=== PATIENT | male | born 1995 | race African-American/Black ===

== ENCOUNTER 2018-05-12 13:35 | Emergency (ER) | payer OTHER ==
[2018-05-12] MEDS ORDERED: Lidocaine 1% (PF) 30 ML VIAL ONE (13:55)
[2018-05-12] MEDS ORDERED: Azithromycin 250 MG TAB ONE (13:55)
[2018-05-12] MEDS ORDERED: cefTRIAXone\\ROCEPHIN 250 MG VIAL ONE (13:55)
[2018-05-15 00:56] LABS: Chlamydia by PCR Not Detected (NotDetected); GC by PCR DETECTED (NotDetected)
== END 2018-05-12 14:43 | disposition home or self-care (01) ==
LOC: ERS 13:35
DX: Z20.2 Contact with and (suspected) exposure to infections with a predominantly sexual mode of transmission (principal)
CPT/HCPCS: 87491; 87591; 96372; J0696; J2001

== ENCOUNTER 2018-09-01 19:36 | Emergency (ER) | payer OTHER ==
[2018-09-01] MEDS ORDERED: Metoclopramide HCl 10 MG/2 ML VIAL ONE (20:23)
[2018-09-01] MEDS ORDERED: Ketorolac Tromethamine 30 MG/ML VIAL ONE (20:36)
== END 2018-09-01 22:00 | disposition home or self-care (01) ==
LOC: ERS 19:36
DX: G43.909 Migraine, unspecified, not intractable, without status migrainosus (principal)
CPT/HCPCS: 96365; 96375; J1885; J2765

== ENCOUNTER 2018-11-16 13:03 | Emergency (ER) | payer OTHER ==
[2018-11-16 13:37] LABS: Bilirubin Negative (Negative); Blood, Urine Negative (Negative); Clarity Clear (Clear); Glucose, Urine (Dipstick) Normal (Negative); Leukocyte Negative Leu/uL (Negative); Nitrite Negative (Negative); Protein, Urine (Dipstick) 10 mg/dL (Neg-Trace); Urobilinogen Normal mg/dL (Less than 2)
[2018-11-16] MEDS ORDERED: Lidocaine 1% PF 5 ML VIAL ONE (14:48)
[2018-11-16] MEDS ORDERED: cefTRIAXone\\ROCEPHIN 250 MG VIAL ONE (14:48)
[2018-11-16] MEDS ORDERED: Azithromycin 250 MG TAB ONE (14:48)
[2018-11-20 17:18] LABS: Chlam.trachomatis by PCR,Urine Not Detected (NotDetected)
== END 2018-11-16 15:10 | disposition home or self-care (01) ==
LOC: ERS 13:03
DX: A64 Unspecified sexually transmitted disease (principal)
CPT/HCPCS: 81003; 87491; 87591; 96372; 99283; J0696; J2001

== ENCOUNTER 2019-06-07 11:10 | Emergency (ER) | payer OTHER ==
[2019-06-07 11:45] LABS: Bilirubin Negative (Negative); Blood, Urine Negative (Negative); Clarity Clear (Clear); Glucose, Urine (Dipstick) Normal (Negative); Leukocyte Negative Leu/uL (Negative); Nitrite Negative (Negative); Protein, Urine (Dipstick) Negative (Neg-Trace); Urobilinogen Normal mg/dL (Less than 2)
[2019-06-07] MEDS ORDERED: cefTRIAXone\\ROCEPHIN 250 MG VIAL ONE (12:00)
[2019-06-07] MEDS ORDERED: Lidocaine 1% PF 5 ML VIAL ONE (12:00)
[2019-06-07] MEDS ORDERED: Azithromycin 250 MG TAB ONE (12:00)
== END 2019-06-07 12:20 | disposition home or self-care (01) ==
LOC: ERS 11:10
DX: L73.9 Follicular disorder, unspecified (principal)
CPT/HCPCS: 81003; 96372; 99283; J0696; J2001

== ENCOUNTER 2019-08-28 12:03 | Emergency (ER) | payer OTHER ==
[2019-08-28 12:39] LABS: Bacteria/HPF None Seen HPF (None Seen); Bilirubin Negative (Negative); Blood, Urine Negative (Negative); Clarity Clear (Clear); Glucose, Urine (Dipstick) Normal (Negative); Leukocyte 25 Leu/uL (Negative); Nitrite Negative (Negative); Protein, Urine (Dipstick) Negative (Neg-Trace); RBC/HPF 0-3 HPF (0-3); Squamous Epithelial None Seen HPF (0-3); Urobilinogen Normal mg/dL (Less than 2)
[2019-08-28] MEDS ORDERED: Lidocaine 1% PF 5 ML VIAL ONE (12:57)
[2019-08-28] MEDS ORDERED: cefTRIAXone\\ROCEPHIN 250 MG VIAL ONE (12:57)
[2019-08-28] MEDS ORDERED: Azithromycin 250 MG TAB ONE (12:57)
[2019-08-30 23:49] LABS: Chlam.trachomatis by PCR,Urine DETECTED (NotDetected)
== END 2019-08-28 13:18 | disposition home or self-care (01) ==
LOC: ERS 12:03
DX: A64 Unspecified sexually transmitted disease (principal)
CPT/HCPCS: 81003; 81015; 87491; 87591; 96372; 99283; J0696; J2001

== ENCOUNTER 2019-10-01 16:43 | Emergency (ER) | payer OTHER ==
[2019-10-02 14:29] LABS: SARS-CoV-2 MS2 Positive; SARS-CoV-2 N Gene Negative; SARS-CoV-2 S Gene Negative; SARS-CoV-2 by NAA Not Detected (NotDetected); SARS-CoV-2 orf1ab Negative
== END 2019-10-01 17:08 | disposition home or self-care (01) ==
LOC: ERS 16:43
DX: J34.89 Other specified disorders of nose and nasal sinuses (principal); Z20.828 Contact with and (suspected) exposure to other viral communicable diseases; F17.290 Nicotine dependence, other tobacco product, uncomplicated
CPT/HCPCS: 87635; 99283; U0003

== ENCOUNTER 2020-06-27 16:16 | Emergency (ER) | payer OTHER ==
[2020-06-27] MEDS ORDERED: Lidocaine 1% PF 5 ML VIAL ONE (16:58)
== END 2020-06-27 17:16 | disposition home or self-care (01) ==
LOC: ERS 16:16
DX: S01.511A Laceration without foreign body of lip, initial encounter (principal); F17.290 Nicotine dependence, other tobacco product, uncomplicated; Y04.0XXA Assault by unarmed brawl or fight, initial encounter
CPT/HCPCS: 12011

== ENCOUNTER 2020-07-14 11:50 | Emergency (ER) | payer OTHER | END 2020-07-14 12:56 | disposition home or self-care (01) | LOC: ERS 11:50 | DX: S01.511D Laceration without foreign body of lip, subsequent encounter (principal); F17.290 Nicotine dependence, other tobacco product, uncomplicated; X58.XXXD Exposure to other specified factors, subsequent encounter ==

== ENCOUNTER 2021-02-14 02:44 | Emergency (ER) | payer OTHER ==
[2021-02-14] MEDS ORDERED: Lidocaine 1% PF 5 ML VIAL ONE (03:23)
[2021-02-14] MEDS ORDERED: Boostrix 0.5 ML (Tdap) VIAL ONE (03:23)
== END 2021-02-14 04:58 | disposition home or self-care (01) ==
LOC: ERS 02:44
DX: S01.511A Laceration without foreign body of lip, initial encounter (principal); S61.412A Laceration without foreign body of left hand, initial encounter; S60.511A Abrasion of right hand, initial encounter; S80.212A Abrasion, left knee, initial encounter; F17.210 Nicotine dependence, cigarettes, uncomplicated; W22.8XXA Striking against or struck by other objects, initial encounter
CPT/HCPCS: 12001; 12011; 90471; 90715

== ENCOUNTER 2021-02-17 14:00 | Inpatient (IN) | payer OTHER ==
[2021-02-17] MEDS ORDERED: Cefepime 2 GM VIAL ONE (14:19)
[2021-02-17 14:46] LABS: #Basophils 0.1 thou/uL (0.0-0.2); #Eosinphils 0.1 thou/uL (0.0-0.7); #Lymphocytes 1.3 thou/uL (1.20-3.40); #Monocytes 1.9 thou/uL (0.11-0.59); #Neutrophils 9.7 thou/uL (1.40-6.50); %Basophils 0.5 % (0.0-1.0); %Eosinophils 0.8 % (0.0-10.0); %Lymphocytes 10.3 % (21.0-51.0); %Monocytes 14.4 % (0.0-10.0); %Neutrophils 74.1 % (42.0-75.0); Hemoglobin 16.1 g/dL (14.0-18.0); Mean Corpuscular HGB CONC 35.3 g/dL (32.0-36.0); Mean Corpuscular Hemoglobin 28.9 pg (27.0-31.0); Mean Corpuscular Volume 81.8 fL (78.0-98.0); Mean Platelet Volume 7.4 fL (7.4-10.4); Platelet Count 217 thou/uL (130-400); RBC Distribution Width 12.7 % (11.5-14.5); Red Blood Cell (RBC) Count 5.56 mill/uL (4.70-6.10); White Blood Cell (WBC) Count 13.1 thou/uL (4.8-10.8)
[2021-02-17 15:01] LABS: ALT (SGPT) 17 U/L (8-55); AST (SGOT) 16 U/L (5-34); Albumin 4.2 g/dL (3.5-5.0); Alkaline Phosphatase 75 U/L (40-110); Anion Gap 11 mmol/L (10-20); BUN (Urea Nitrogen) 12 mg/dL (8.9-20.6); Bilirubin, Total 0.9 mg/dL (0.2-1.2); Calc. Creatinine Clearance 0 mL/min (70-130); Calcium 9.3 mg/dL (7.8-10.44); Carbon Dioxide 28 mmol/L (22-29); Chloride 103 mmol/L (98-107); Globulin 3.3 g/dL (2.4-3.5); Glucose 84 mg/dL (70-105); Potassium 3.5 mmol/L (3.5-5.1); Protein, Total 7.5 g/dL (6.0-8.3); Sodium 138 mmol/L (136-145)
[2021-02-17] MEDS ORDERED: Acetaminophen 500 MG TAB ONE (15:17)
[2021-02-17] MEDS ORDERED: Vancomycin 1 GM/200 ML BAG ONE (15:17)
[2021-02-17 16:37] LABS: SARS-CoV-2 NAA Rapid Test Not Detected (NotDetected)
[2021-02-17] MEDS ORDERED: Fentanyl 100 MCG/2 ML VIAL ONE ×3 (16:43→20:53)
[2021-02-17] MEDS ORDERED: HYDROmorphone 2 MG/ML VIAL ONE (17:15)
[2021-02-17] MEDS ORDERED: Bupivacaine 0.25% 10 ML VIAL ONE (17:45)
[2021-02-17] MEDS ORDERED: Lidocaine 1% w/Epinephrine 1:100K 20 ML VIAL ONE (17:45)
[2021-02-17] MEDS ORDERED: PROPOFOL 200 MG/20 ML VIAL ONE (17:48)
[2021-02-17] MEDS ORDERED: Ondansetron PF 4 MG/2 ML Vial ONE (17:48)
[2021-02-17] MEDS ORDERED: Dexamethasone 20 MG/5 ML VIAL ONE (17:48)
[2021-02-17] MEDS ORDERED: Ketorolac Tromethamine 30 MG/ML VIAL ONE (17:48)
[2021-02-17] MEDS ORDERED: Lidocaine 1% PF 5 ML VIAL ONE (17:48)
[2021-02-17] MEDS ORDERED: Promethazine HCl 25 MG/ML VIAL IM PRN (18:22)
[2021-02-17] MEDS ORDERED: Morphine Sulfate 2 MG/ML SYRINGE SLOW IVP PRN (18:22)
[2021-02-17] MEDS ORDERED: Ondansetron HCl/PF 4 MG/2 ML Vial IVP PRN (18:22)
[2021-02-17] MEDS ORDERED: PACU-Morphine 4MG/ML VIAL SLOW IVP PRN (18:22)
[2021-02-17] MEDS ORDERED: Promethazine HCl 25 MG/ML VIAL IVPB PRN (18:22)
[2021-02-17] MEDS ORDERED: Meperidine HCl/PF 25 MG/ML VIAL SLOW IVP PRN (18:22)
[2021-02-17] MEDS ORDERED: Ketorolac Tromethamine 30 MG/ML VIAL IVP PRN (18:22)
[2021-02-17] MEDS ORDERED: HYDROmorphone 2 MG/ML VIAL SLOW IVP PRN (18:22)
[2021-02-17] MEDS ORDERED: Hydrocortisone Sod Succ/PF 100 mg/2 ml Vial ONE (19:21)
[2021-02-17] MEDS ORDERED: Metoprolol Tartrate 5 MG/5 ML VIAL ONE (20:16)
[2021-02-17 20:25] LABS: #Basophils 0.1 thou/uL (0.0-0.2); #Eosinphils 0.1 thou/uL (0.0-0.7); #Lymphocytes 1.1 thou/uL (1.20-3.40); #Monocytes 0.5 thou/uL (0.11-0.59); %Basophils 0.5 % (0.0-1.0); %Eosinophils 0.7 % (0.0-10.0); %Lymphocytes 8.4 % (21.0-51.0); %Monocytes 4.2 % (0.0-10.0); %Neutrophils 86.3 % (42.0-75.0); Hemoglobin 17.5 g/dL (14.0-18.0); Mean Corpuscular HGB CONC 33.6 g/dL (32.0-36.0); Mean Corpuscular Volume 83.3 fL (78.0-98.0); Mean Platelet Volume 7.3 fL (7.4-10.4); Platelet Count 215 thou/uL (130-400); Red Blood Cell (RBC) Count 6.23 mill/uL (4.70-6.10); White Blood Cell (WBC) Count 12.8 thou/uL (4.8-10.8)
[2021-02-17 20:56] LABS: ALT (SGPT) 15 U/L (8-55); AST (SGOT) 19 U/L (5-34); Albumin 3.6 g/dL (3.5-5.0); Alkaline Phosphatase 68 U/L (40-110); Anion Gap 13 mmol/L (10-20); BUN (Urea Nitrogen) 11 mg/dL (8.9-20.6); Bilirubin, Total 0.7 mg/dL (0.2-1.2); Calc. Creatinine Clearance 0 mL/min (70-130); Calcium 8.8 mg/dL (7.8-10.44); Carbon Dioxide 23 mmol/L (22-29); Chloride 106 mmol/L (98-107); Glucose 111 mg/dL (70-105); Potassium 4.1 mmol/L (3.5-5.1); Protein, Total 6.6 g/dL (6.0-8.3); Sodium 138 mmol/L (136-145)
[2021-02-17] MEDS ORDERED: Acetaminophen 650 MG Suppository PR PRN (21:19)
[2021-02-17] MEDS ORDERED: Ondansetron PF 4 MG/2 ML Vial IVP PRN (21:19)
[2021-02-17] MEDS ORDERED: Acetaminophen 325 MG TAB PO PRN (21:19)
[2021-02-17] MEDS ORDERED: Ondansetron ODT 4 MG TAB PO PRN (21:19)
[2021-02-17] MEDS ORDERED: Piperacillin/Tazobactam 3.375 GM in Sodium Chloride 0.9% 100 ML IVPB SCH (21:30)
[2021-02-17] MEDS ORDERED: Chloraseptic Spray 180 ml Bottle PO PRN (21:40)
[2021-02-17] MEDS ORDERED: Cepastat Lozenges 1 LOZ PO PRN (21:40)
[2021-02-17] MEDS ORDERED: Vancomycin HCl 750 MG in Sodium Chloride 0.9% 250 ML 250 ML IVPB SCH (22:00)
[2021-02-17] MEDS: Benzonatate 100 MG CAP PO PRN (22:58)
[2021-02-18 00:14] VITALS: BMI 29.8
[2021-02-18] MEDS ORDERED: Furosemide 40 MG/4 ML VIAL SLOW IVP SCH (00:15)
[2021-02-18] MEDS ORDERED: Melatonin 3 MG TAB PO SCH (01:30)
[2021-02-18] MEDS: GUAIFENESIN SF SOLN 200 MG/10 ML UDCUP PO PRN ×3 (01:44→23:45)
[2021-02-18] MEDS ORDERED: Lorazepam 1 MG TAB PO PRN (02:30)
[2021-02-18] MEDS: Piperacillin/Tazobactam 3.375 GM in Sodium Chloride 0.9% 100 ML IVPB SCH ×3 (02:58→18:16)
[2021-02-18 04:46] LABS: Hemoglobin 16.1 g/dL (14.0-18.0); Mean Corpuscular HGB CONC 34.4 g/dL (32.0-36.0); Mean Corpuscular Hemoglobin 28.3 pg (27.0-31.0); Mean Corpuscular Volume 82.2 fL (78.0-98.0); Mean Platelet Volume 7.3 fL (7.4-10.4); Platelet Count 204 thou/uL (130-400); RBC Distribution Width 12.7 % (11.5-14.5); Red Blood Cell (RBC) Count 5.69 mill/uL (4.70-6.10); White Blood Cell (WBC) Count 15.9 thou/uL (4.8-10.8)
[2021-02-18 05:07] LABS: Anion Gap 13 mmol/L (10-20); BUN (Urea Nitrogen) 13 mg/dL (8.9-20.6); Calc. Creatinine Clearance 134 mL/min (70-130); Calcium 8.4 mg/dL (7.8-10.44); Carbon Dioxide 23 mmol/L (22-29); Chloride 105 mmol/L (98-107); Glucose 140 mg/dL (70-105); Potassium 4.2 mmol/L (3.5-5.1); Sodium 137 mmol/L (136-145)
[2021-02-18 05:15] LABS: Band 20 % (5-11); Lymphocytes 3 % (21-51); MDiff Complete? YES; Monocytes 4 % (0-10); Neutrophil 71 % (42-75); Reactive Lymphocytes 2 % (0-10)
[2021-02-18] MEDS ORDERED: FLU VACC QS2021-22(6MOS UP)/PF 60 MCG/0.5 ML SYRINGE IM ONE (09:00)
[2021-02-18] MEDS: VANCOMYCIN 1.25 GM/250 ML BAG 1.25 GM in Premix Bag 1 BAG IVPB SCH ×3 (09:29→23:46)
[2021-02-18] MEDS: Benzonatate 100 MG CAP PO PRN (21:50)
[2021-02-18 23:37] LABS: Vancomycin, Trough 9.9 ug/mL
[2021-02-19] MEDS ORDERED: Melatonin 3 MG TAB PO SCH (00:33)
[2021-02-19] MEDS: VANCOMYCIN 1.75 GM/350 ML BAG 1.75 GM in Premix Bag 1 BAG IVPB SCH ×2 (00:59→09:31)
[2021-02-19] MEDS: Piperacillin/Tazobactam 3.375 GM in Sodium Chloride 0.9% 100 ML IVPB SCH ×2 (03:34→11:28)
[2021-02-19 04:40] LABS: #Eosinphils 0.3 thou/uL (0.0-0.7); #Monocytes 1.4 thou/uL (0.11-0.59); #Neutrophils 6.1 thou/uL (1.40-6.50); %Basophils 0.3 % (0.0-1.0); %Eosinophils 3.1 % (0.0-10.0); %Monocytes 14.3 % (0.0-10.0); %Neutrophils 62.2 % (42.0-75.0); Hemoglobin 13.4 g/dL (14.0-18.0); Mean Corpuscular HGB CONC 31.5 g/dL (32.0-36.0); Mean Corpuscular Hemoglobin 26.5 pg (27.0-31.0); Mean Platelet Volume 7.6 fL (7.4-10.4); Platelet Count 207 thou/uL (130-400); RBC Distribution Width 12.6 % (11.5-14.5); Red Blood Cell (RBC) Count 5.08 mill/uL (4.70-6.10); White Blood Cell (WBC) Count 9.8 thou/uL (4.8-10.8)
[2021-02-19 05:00] LABS: Anion Gap 11 mmol/L (10-20); BUN (Urea Nitrogen) 18 mg/dL (8.9-20.6); Calc. Creatinine Clearance 148 mL/min (70-130); Calcium 8.4 mg/dL (7.8-10.44); Carbon Dioxide 25 mmol/L (22-29); Chloride 107 mmol/L (98-107); Glucose 95 mg/dL (70-105); Sodium 139 mmol/L (136-145)
[2021-02-19] MEDS: Ampicillin/Sulbactam 3 GM in Sodium Chloride 0.9% 100 ML IVPB SCH (18:22)
[2021-02-20] MEDS: Ampicillin/Sulbactam 3 GM in Sodium Chloride 0.9% 100 ML IVPB SCH ×3 (01:09→11:57)
[2021-02-20] MEDS ORDERED: Melatonin 3 MG TAB PO SCH (01:30)
[2021-02-20 05:13] LABS: Anion Gap 11 mmol/L (10-20); BUN (Urea Nitrogen) 14 mg/dL (8.9-20.6); Calc. Creatinine Clearance 164 mL/min (70-130); Calcium 8.9 mg/dL (7.8-10.44); Carbon Dioxide 27 mmol/L (22-29); Chloride 106 mmol/L (98-107); Glucose 111 mg/dL (70-105); Potassium 3.6 mmol/L (3.5-5.1); Sodium 140 mmol/L (136-145)
[2021-02-20 05:47] LABS: Eosinophils 8 % (0-10); Hemoglobin 15.1 g/dL (14.0-18.0); Lymphocytes 19 % (21-51); MDiff Complete? YES; Mean Corpuscular HGB CONC 32.9 g/dL (32.0-36.0); Mean Corpuscular Hemoglobin 27.1 pg (27.0-31.0); Mean Corpuscular Volume 82.2 fL (78.0-98.0); Mean Platelet Volume 7.2 fL (7.4-10.4); Monocytes 12 % (0-10); Neutrophil 60 % (42-75); Platelet Count 240 thou/uL (130-400); Platelet Morphology Comment Appears Adequate; RBC Distribution Width 12.6 % (11.5-14.5); RBC Morphology Normal; Red Blood Cell (RBC) Count 5.58 mill/uL (4.70-6.10); White Blood Cell (WBC) Count 9.9 thou/uL (4.8-10.8)
[2021-02-20 11:02] VITALS: BP 122/68; TEMP 98.5
== END 2021-02-20 15:38 | disposition home or self-care (01) | DRG 854 ==
LOC: ERS 14:00 → UNDOADMIN 16:27 → T4-A 16:27 → SURG A 16:57 → T4-A 18:09 → SURG A 18:09 → T4-A 18:11 → SURG A 21:11 → 2NO 22:43
PROVIDERS: ADMIT Family Medicine; ATTEND Internal Medicine
PROC: 0R9V0ZZ Drainage of Left Metacarpophalangeal Joint, Open Approach (ICD-10-PCS; principal; 2021-02-17)
PROC: 0LD80ZZ Extraction of Left Hand Tendon, Open Approach (ICD-10-PCS; 2021-02-17)
DX: A40.8 Other streptococcal sepsis (principal); L03.114 Cellulitis of left upper limb; M00.242 Other streptococcal arthritis, left hand; R04.2 Hemoptysis; L02.512 Cutaneous abscess of left hand; Z20.822 Contact with and (suspected) exposure to COVID-19; F17.290 Nicotine dependence, other tobacco product, uncomplicated; R09.89 Other specified symptoms and signs involving the circulatory and respiratory systems; S01.511A Laceration without foreign body of lip, initial encounter; S61.412A Laceration without foreign body of left hand, initial encounter; S60.511A Abrasion of right hand, initial encounter; S80.212A Abrasion, left knee, initial encounter; W22.8XXA Striking against or struck by other objects, initial encounter
CPT/HCPCS: 12001; 12011; 36415; 71045; 80048; 80053; 80202; 83605; 85025; 87040; 87070; 87077; 87102; 87116; 87205; 87206; 90471; 90715; 96365; 96367; J0295; J0692; J1100; J1170; J1720; J1885; J1940; J2405; J2543; J2704; J3010; J3370; J3490; J7050; J7620; S0020; U0002

== ENCOUNTER 2021-09-22 13:10 | Emergency (ER) | payer OTHER ==
[2021-09-22] MEDS ORDERED: Lidocaine 1% PF 5 ML VIAL ONE (14:35)
[2021-09-22] MEDS ORDERED: cefTRIAXone\\ROCEPHIN 500 MG VIAL ONE (14:35)
[2021-09-22] MEDS ORDERED: Azithromycin 250 MG TAB ONE (14:35)
[2021-09-22 15:05] LABS: Bacteria/HPF None Seen HPF (None Seen); Bilirubin Negative (Negative); Blood, Urine Negative (Negative); Clarity Clear (Clear); Glucose, Urine (Dipstick) Normal (Negative); Ketone, Urine Negative (Negative); Leukocyte 25 Leu/uL (Negative); Nitrite Negative (Negative); Protein, Urine (Dipstick) Negative (Neg-Trace); RBC/HPF 0-3 HPF (0-3); Specific Gravity, Urine 1.022 (1.002-1.036); Squamous Epithelial None Seen HPF (0-3); Urobilinogen Normal mg/dL (Less than 2)
[2021-09-23 12:48] LABS: Chlam.trachomatis by PCR,Urine Not Detected (NotDetected)
== END 2021-09-22 15:20 | disposition home or self-care (01) ==
LOC: ERS 13:10
DX: N34.1 Nonspecific urethritis (principal); F17.290 Nicotine dependence, other tobacco product, uncomplicated
CPT/HCPCS: 81003; 81015; 87491; 87591; 96372; 99283; J0696

== ENCOUNTER 2022-09-15 15:24 | Emergency (ER) | payer OTHER | END 2022-09-15 15:55 | disposition home or self-care (01) | LOC: ERS 15:24 | DX: S62.324D Displaced fracture of shaft of fourth metacarpal bone, right hand, subsequent encounter for fracture with routine healing (principal); F17.290 Nicotine dependence, other tobacco product, uncomplicated; Y04.0XXD Assault by unarmed brawl or fight, subsequent encounter | CPT/HCPCS: 99281 ==

== ENCOUNTER 2023-04-19 13:02 | Emergency (ER) | payer OTHER, SELFPAY ==
[2023-04-19] MEDS ORDERED: Fluorescein Opthalmic Strip ONE (14:41)
[2023-04-19] MEDS ORDERED: Proparacaine 0.5% Opth 15 ML BOT ONE (14:41)
== END 2023-04-19 15:20 | disposition home or self-care (01) ==
LOC: ERS 13:02
DX: H10.89 Other conjunctivitis (principal); F17.210 Nicotine dependence, cigarettes, uncomplicated
CPT/HCPCS: 99283

== ENCOUNTER 2023-06-11 08:32 | Emergency (ER) | payer SELFPAY ==
[2023-06-11] MEDS ORDERED: Proparacaine 0.5% Opth 15 ML BOT ONE (08:41)
[2023-06-11] MEDS ORDERED: Fluorescein Opthalmic Strip ONE (08:44)
== END 2023-06-11 09:10 | disposition home or self-care (01) ==
LOC: ERS 08:32
DX: H10.9 Unspecified conjunctivitis (principal); G43.B0 Ophthalmoplegic migraine, not intractable; F17.210 Nicotine dependence, cigarettes, uncomplicated; Z55.6 Problems related to health literacy
CPT/HCPCS: 99282

== ENCOUNTER 2025-02-10 20:23 | Emergency (ER) | payer SELFPAY ==
[2025-02-10] MEDS ORDERED: cefTRIAXone (ROCEPHIN) 500 MG VIAL ONE (21:20)
[2025-02-10 21:44] LABS: Bacteria/HPF None Seen HPF (None Seen); CAUTI Indications for Culture Dysuria,urgency,freq; Glucose, Urine (Dipstick) Normal (Negative); Leukocyte Negative Leu/uL (Negative); Protein, Urine (Dipstick) Negative (Neg-Trace); RBC/HPF None Seen HPF (0-3); Specific Gravity, Urine 1.023 (1.002-1.036); WBC/HPF None Seen HPF (0-3)
[2025-02-10 21:48] LABS: Urine Culture Reflex No No
[2025-02-11 23:41] LABS: Chlam.trachomatis by PCR,Urine Not Detected (NotDetected); GC N.gonorrhoeae PCR,UrineVOID Not Detected (NotDetected)
== END 2025-02-10 22:05 | disposition home or self-care (01) ==
LOC: ERS 20:23
DX: Z11.3 Encounter for screening for infections with a predominantly sexual mode of transmission (principal)
CPT/HCPCS: 81001; 87491; 87591; 96372; 99283; J0696